=== PATIENT | female | born 1985 | race Caucasian/White ===

== ENCOUNTER 2021-08-12 11:51 | Emergency (ER) | payer BC ==
[~2021-08-12] VITALS: Ht 165.1 cm; Wt 54.4 kg
[2021-08-12 12:10] VITALS: BP_SYST 135
[2021-08-12] MEDS ORDERED: KETOROLAC TROMETHAMINE 60 MG/2 ML VIAL IM ONE (12:15)
[2021-08-12 12:37] LABS: EOSINOPHILS # (AUTO) 0.2 K/uL (0.0-0.4); HEMATOCRIT 35.1 % (36-48); HEMOGLOBIN 11.3 g/dL (12.0-16.0); LYMPHOCYTES # (AUTO) 2.2 K/uL (1.0-5.5); LYMPHOCYTES % (AUTO) 26.9 % (20.5-51.5); MEAN CORPUSCULAR HEMOGLOBIN 23 pg (27-31); MEAN CORPUSCULAR HGB CONC 32 % (32-36); MEAN CORPUSCULAR VOLUME 73 fL (79.0-98.0); MONOCYTES # (AUTO) 0.2 K/uL (0.0-1.0); MONOCYTES % (AUTO) 2.3 % (1.7-9.3); PLATELET COUNT (AUTO) 258 K/uL (130-430); RED BLOOD CELL COUNT(AUTO) 4.82 MIL/uL (4.2-6.2); RED CELL DISTRIBUTION WIDTH 16.9 % (9.0-15.0)
--- NOTE | 2021-08-12 12:39 | NUR ---
Patient to ER bed 3 to gown for evaluation. Side rails up. ASSUMED CARE
--- NOTE | 2021-08-12 12:40 | NUR ---
DR VILLAREAL AT BEDSIDE FOR EXAM
--- NOTE | 2021-08-12 12:43 | NUR ---
PT COMES TO ER WITH C/O LLQ PAIN X 1 HR [employer]. STATES SHE WAS WALKING DOING CHORES WHEN SHE SUDDENLY FELT ACUTE SEVERE PAIN TO LLQ. DENIES HEMATURIA. STARTED MENSES TODAY, STATES SHE USUALLY GETS SEVERE ABD CRAMPS BUT FEELS IT IS WORSE TODAY. DENIES PREGANCY, NO HAVING COITUS. REPORTS MILD NAUSEA/NO VOMITTING. ABD FLAT, TENDER TO TOUCH. PT CRYING WITH PAIN,FACIAL GRIMACING, FRIEND IN WAIITNG ROOM. DENIES ANY FEVERS/CHILLS.
[2021-08-12 12:44] LABS: BASOPHILS % (AUTO) 0.8 % (0.0-2.0); NEUTROPHILS # (AUTO) 5.5 K/uL (1.8-7.7)
--- NOTE | 2021-08-12 12:51 | NUR ---
MEDICATED ORDERED, PT GOING TO XRAY.
[2021-08-12 13:05] LABS: PROTHROMBIN TIME 10.6 SECS (9.5-12.5)
--- NOTE | 2021-08-12 13:11 | NUR ---
Returned from radiology, back to [facility].
[2021-08-12 13:41] LABS: ANION GAP 13 (5-15); CALCIUM 9.1 mg/dL (8.4-11.0); CHLORIDE 103 mmol/L (98-107); GLUCOSE 126 mg/dL (70-99); POTASSIUM 4.1 mmol/L (3.5-5.1); SODIUM SERUM 137 mmol/L (136-145); UREA NITROGEN, BLOOD 12 mg/dL (8-21)
[2021-08-12 13:44] LABS: GFR AFRICAN AMERICAN 104 mL/min (>90)
[2021-08-12 13:46] LABS: ALANINE AMINOTRANSFERASE 21 U/L (12-78); ALBUMIN 3.9 g/dL (3.4-4.8); AMYLASE 50 U/L (0-100); ASPARTATE AMINOTRANSFERASE 14 U/L (10-37); LIPASE 135 U/L (73-393); TOTAL BILIRUBIN 0.5 mg/dL (0.0-1.0)
--- NOTE | 2021-08-12 13:56 | NUR ---
PT LAYING IN BED, IN NAD. RESP EVEN AND UNLABORED. REPORTS FEELING BETTER AFTER PAINMEDICATION, DENIES PAIN AT THIS TIME. WAITING FOR DISPO.
[2021-08-12 13:58] LABS: C-REACTIVE PROTEIN QUANT < 0.2 mg/dL (0-0.5)
[2021-08-12] MEDS ORDERED: IBUP-1971 PO (13:59)
[2021-08-12 14:42] VITALS: BP_SYST 129
--- NOTE | 2021-08-12 14:43 | NUR ---
DC WITH [facility], PT VERBALIZED UNDERSTANDNG. VSS.
== END 2021-08-12 14:43 | disposition home or self-care (01) ==
LOC: SED 11:51
DX: R10.32 Left lower quadrant pain (principal)
CPT/HCPCS: 36415; 74176; 76376; 80053; 81002; 81025; 82150; 83605; 83690; 85025; 85610; 85730; 86140; 96372; 99284; J1885